=== PATIENT | female | born 1995 | race Hispanic/Latino ===

== ENCOUNTER 2017-01-29 07:44 | Emergency (ER) | payer OTHER ==
[~2017-01-29] VITALS: Ht 165.1 cm; Wt 115.7 kg
--- NOTE | 2017-01-29 07:54 | ED CARDIAC/CP/PALPITATIONS ---
History of Present Illness General Chief Complaint: Chest Pain Stated Complaint: CHEST PAIN,SOB Source: patient, family Exam Limitations: no limitations Vital Signs & Intake/Output Vital Signs & Intake/Output Vital Signs Date Time Temp Pulse Resp B/P B/P Pulse O2 O2 Flow FiO2 Mean Ox Delivery Rate 01/29 1005 97 01/29 0953 97.8 64 20 120/76 96 Room Air 01/29 0833 98 Room Air 01/29 0748 97.3 65 18 144/84 98 Room Air Allergies Coded Allergies: acetaminophen (From PERCOCET) (Severe, ITCHING 01/29/17) oxycodone (From PERCOCET) (Severe, ITCHING 01/29/17) shellfish derived (Severe, SWELLING 01/29/17) Reconcile Medications Albuterol Sulfate (Ventolin Hfa) 90 MCG HFA.AER.AD 2 PUF INH Q4-6 PRN PRN RESPIRATORY (Reported) Hyoscyamine Sulfate (Levsin-Sl) 0.125 MG TAB.SUBL 1-2 TAB SL Q4P PRN GI Prednisone 20 MG TABLET 1 TAB PO BID Asthma Triage Note: 21 Y/O FEMALE C/O CHEST PAIN, "AND DIAPHRAGM PAIN", ONSET THIS AM SHORTLY AFTER WAKING UP. HX ASTHMA AND STATES SHE USED HER INHALER WITH NO RELIEF. DENIES OTHER COMPLAINTS. TAKEN TO ROOM 3 FOR EKG/EVAL Triage Nurses Notes Reviewed? yes Onset: Just prior to arrival : No Patient currently breastfeeds: No HPI: Miss Soto is a 21-year-old female with past medical history of asthma and a cholecystectomy (March 2016 in [place]) who presented to the emergency department this morning complaining of chest pain. Patient states that her symptoms began this morning at approximately 5 AM. Pain woke her up from sleep. Pain is more prominent in the epigastric area. Pain is rated at a 6 out of 10 in severity and described as sharp. Pain also radiates bilaterally to her flank. She does not endorse any chest pressure or chest tightness. Patient does report this pain is similar to that that she experienced aproximately year ago when she required a cholecystectomy. She denies any fever, chills. She does endorse one episode of emesis this morning prior to coming in. Vomitus is described as nonbloody and nonbilious in nature. Patient did use her inhaler however has not gained any relief to congestion that she felt. Chung at bedside. (MELBA RODRIGUEZ MD) Duration: hour(s):, continues in ED Timing: recent history Quality/Severity: mild, aching, tightness Location: central Radiation: flanks Activities at Onset: none Prior Chest Pain/Card Workup: no prior chest pain, no prior cardiac workup Modifying Factors: Worsens With: breathing. Nitro Today/Relief: no nitro taken today Aspirin Today: no aspirin today Associated Symptoms: abdominal pain, shortness of breath LMP (ages 10-50): unknown (EVENS WHITE MD) Past History Travel History Traveled to [place] past 21 day No Medical History Any Pertinent Medical History? 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 No (MELBA RODRIGUEZ MD) Review of Systems Review of Systems Constitutional: Denies: chills, diaphoresis, fever, malaise, weakness. Respiratory: Denies: cough, hemoptysis, orthopnea, short of breath, sputum production. Cardiovascular: Reports: chest pain. Denies: edema, palpitations, peripheral edema, syncope. GI: Reports: abdominal pain, vomiting. Denies: bloating, constipation, diarrhea, distention, bowel incontinence, melena, nausea, bloody stool. Genitourinary: Denies: discharge, dysuria, frequency, hematuria, hesitation. Musculoskeletal: Denies: back pain, gout, joint pain, joint swelling. Skin: Denies: change in skin color, change in hair/nails, dryness. (MELBA RODRIGUEZ MD) Review of Systems EENTM: Reports: no symptoms. Neurological/Psychological: Reports: no symptoms. Hematologic/Endocrine: Reports: no symptoms. Immunologic/Allergic: Reports: no symptoms. All Other Systems: Reviewed and Negative (EVENS WHITE MD) Physical Exam Physical Exam General Appearance: well developed/nourished, no apparent distress, alert, comfortable, obese Head: normal appearance Eyes: Bilateral: PERRL. Ears, Nose, Throat: normal pharynx, normal ENT inspection Neck: normal inspection Respiratory: normal breath sounds, chest non-tender, no respiratory distress Cardiovascular: regular rate/rhythm Peripheral Pulses: 4+ radial (R), 4+ radial (L), 4+ dorsalis pedis (R), 4+ dorsalis pedis (L) Gastrointestinal: normal bowel sounds, soft, Epigastric Tenderness. Suprapubic Tenderenss. No Guarding, No rebound tenderness. Galvan - Back: normal inspection, normal range of motion, CVA tenderness (R) Extremities: normal inspection, no edema Neurologic/Psych: no motor/sensory deficits (MICHAEL BARR,MELBA) Physical Exam Reflexes: 2+: bicep (R), bicep (L). Skin: intact, normal color, warm/dry Lymphatic: no anterior cervical margy Core Measures ACS in differential dx? Yes ASA ordered for poss ACS? No-ACS ruled out Severe Sepsis Present: No Septic Shock Present: No (CHRISTOPHER BARR,EVENS) Progress Differential Diagnosis: AMI, musculoskeletal pain, pancreatitis Initial ED EKG: normal axis (MICHAEL BARR,MELBA) Plan of Care: Orders Procedure Date/time Status AEROSOL (GEN) 01/29 1001 Complete URINALYSIS 01/29 08 Complete LIPASE 01/29 0813 Complete COMPREHENSIVE METABOLIC PANEL 01/29 08 Complete CBC WITHOUT DIFFERENTIAL 01/29 813 Complete EKG 01/29 0745 Active Laboratory Tests 01/29/17 0830: Urine Color STRAW, Urine Clarity CLEAR, Urine pH 6.0, Ur Specific [place] 1.025, Urine Protein NEG, Urine Ketones NEG, Urine Nitrite NEG, Urine Bilirubin NEG, Urine Urobilinogen 0.2, Ur Leukocyte Esterase NEG, Ur Microscopic EXAM NOT REQUIRED, Urine Hemoglobin NEG, Urine Glucose NEG 01/29/17 0825: Anion Gap 12, Estimated GFR > 60, BUN/Creatinine Ratio 20.0, Glucose 105 H, Calcium 8.5, Total Bilirubin 0.7, AST 23, ALT 36, Alkaline Phosphatase 87, Total Protein 6.9, Albumin 4.1, Globulin 2.8, Albumin/Globulin Ratio 1.5, Lipase 73, CBC w Diff NO MAN DIFF REQ, RBC 5.24, MCV 78.4 L, MCH 25.4 L, RDW 13.8, MPV 7.0 L, Gran % 61.4, Lymphocytes % 29.5, Monocytes % 5.9, Eosinophils % 2.4, Basophils % 0.8, Absolute Granulocytes 3.9, Absolute Lymphocytes 1.9, Absolute Monocytes 0.4, Absolute Eosinophils 0.2, Absolute Basophils 0.1, PUBS MCHC 32.4 L Departure Departure Disposition: HOME OR SELF CARE Condition: Stable Referrals: PATIENT HAS NO PRIMARY CARE DR (PCP/Family) Additional Instructions: Please follow-up with the primary care physician in the next 7 days. We have provided you with a referral. For the next 24-48 hours please maintain a clear liquid diet. Advance her diet as tolerated. Departure Forms: Customer Survey General Discharge Information RELEASE- WORK for 1 days. (Including today's visit) Prescriptions: Current Visit Scripts Hyoscyamine Sulfate (Levsin-Sl) 1-2 TAB SL Q4P PRN GI #10 TAB Prednisone 1 TAB PO BID #10 TAB (MICHAEL BARR,MELBA) Departure Time of Disposition: 1053 Clinical Impression Primary Impression: Asthma with acute exacerbation in adult Secondary Impressions: Gastroenteritis Resident Co-Sign Statement Statement: ED Attending supervision documentation- x I saw and evaluated the patient. I have also reviewed all the pertinent lab results and diagnostic results. I agree with the findings and the plan of care as documented in the Resident's documentation. [] I have reviewed the ED Record and agree with the Resident's documentation. [] Additions or exceptions (if any) to the Resident's note and plan are summarized below: [] (EVENS WHITE MD) Critical Care Note Critical Care Note Critical Care Time: non-applicable (EVENS WHITE MD)
[2017-01-29 08:31] LABS: ABSOLUTE BASOPHIL COUNT 0.1 /CUMM (0.0-0.2); ABSOLUTE EOSINOPHIL COUNT 0.2 /CUMM (0.0-0.7); ABSOLUTE GRANULOCYTE CT 3.9 /CUMM (1.4-6.5); ABSOLUTE LYMPH COUNT 1.9 /CUMM (1.2-3.4); ABSOLUTE MONOCYTE COUNT 0.4 /CUMM (0.10-0.60); BASOPHIL % 0.8 % (0.0-2.0); EOSINOPHIL % 2.4 % (0-5); GRANULOCYTE % 61.4 % (42.2-75.2); MEAN CORPUSCULAR HGB 25.4 PG (27.0-31.0); MEAN CORPUSCULAR HGB CONC 32.4 G/DL (33.0-37.0); MEAN CORPUSCULAR VOLUME 78.4 FL (81.0-99.0); PLATELET COUNT 370 /CUMM (130-400); RBC DISTRIBUTION WIDTH 13.8 % (11.5-14.5); RED BLOOD CELL CT 5.24 /CUMM (4.20-5.40); WHITE BLOOD CELL COUNT 6.4 /CUMM (4.8-10.8)
[2017-01-29] MEDS ORDERED: VENTOLIN HFA18 GM INH (08:42)
[2017-01-29] MEDS ORDERED: LEVSIN-SL0.125 MG SL (09:05)
[2017-01-29 09:53] VITALS: BP 120/76
[2017-01-29] MEDS ORDERED: PREDNISONE20 M1 PO (10:34)
== END 2017-01-29 10:58 ==
LOC: ERH 07:44
PROVIDERS: Student in an Organized Health Care Education/Training Program
DX: J45.901 Unspecified asthma with (acute) exacerbation (principal); K52.9 Noninfective gastroenteritis and colitis, unspecified
CPT/HCPCS: 81003; 93005; 93010

== ENCOUNTER 2017-02-05 20:18 | Emergency (ER) | payer OTHER ==
[~2017-02-05] VITALS: Ht 165.1 cm; Wt 115.7 kg
[~2017-02-05 20:18] MED LIST: LEVSIN-SL0.125 MG SL; PREDNISONE20 M1 PO; VENTOLIN HFA18 GM INH
[2017-02-05 20:31] VITALS: BP 139/79
--- NOTE | 2017-02-05 21:55 | ED HEAD/FACIAL INJ COMPLAINT ---
History of Present Illness General Chief Complaint: Fall Stated Complaint: PT SLIP IN THE SHOWER AND HIT HER HEAD Source: patient Exam Limitations: no limitations Vital Signs & Intake/Output Vital Signs & Intake/Output Vital Signs Date Time Temp Pulse Resp B/P B/P Pulse O2 O2 Flow FiO2 Mean Ox Delivery Rate 02/05 2031 99.0 92 16 139/79 97 Room Air Allergies Coded Allergies: oxycodone (From PERCOCET) (Severe, ITCHING 01/29/17) shellfish derived (Severe, SWELLING 01/29/17) Reconcile Medications Albuterol Sulfate (Ventolin Hfa) 90 MCG HFA.AER.AD 2 PUF INH Q4-6 PRN PRN RESPIRATORY (Reported) Triage Note: PT TO TRIAGE S/P SLIP, FALL IN SHOWER,AND HIT BACK OF HEAD 1HR POT ANNEALER. C/O HEADACHE, BLURRY VISION, RINGING IN EARS. BUMP TO BACK OF HEAD NOTED. DENIES LOC, -LAC. ICE PACK PROVIDED. VSS. Triage Nurses Notes Reviewed? yes Onset: Abrupt Severity: mild, moderate Location: occipital Method of Injury: fall Loss of Consciousness: dazed Associated Symptoms: FEELS CONFUSED, NAUSEA : No Patient currently breastfeeds: No HPI: 20-year-old healthy female presents to the ER for chief complaint of headache, blurred vision and some confusion after slipping and falling in the shower a couple of hours ago. She did she lost her footing fell back and her head hit the soapdish and then she went to the ground. She does not think she passed appeared she has some confusion regarding the events. Complains of some blurred vision and some headache. She does feel a little bit dizzy. She is not on any aspirin or Plavix or any blood thinners. Past History Travel History Traveled to [place] past 21 day No Medical History Any Pertinent Medical History? 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 No Review of Systems Review of Systems Constitutional: Denies: chills, fever. EENTM: Reports: see HPI (TINNITUS), blurred vision. Respiratory: Reports: no symptoms. Cardiovascular: Denies: chest pain. GI: Reports: nausea. Denies: abdominal pain, vomiting. Genitourinary: Reports: no symptoms. Musculoskeletal: Denies: back pain. Skin: Reports: no symptoms. Neurological/Psychological: Reports: confusion, headache. Hematologic/Endocrine: Denies: bruising, bleeding, polyuria, polydipsia. Immunologic/Allergic: Denies: splenectomy. All Other Systems: Reviewed and Negative Physical Exam Physical Exam General Appearance: well developed/nourished, alert, awake, mild distress, obese Head: tenderness (OVER OCCIPUT, NO LACERATION) Eyes: Bilateral: PERRL, EOMI. Ears, Nose, Throat: normal pharynx, normal ENT inspection, hearing grossly normal Neck: normal inspection, supple Respiratory: normal breath sounds Cardiovascular: regular rate/rhythm Gastrointestinal: soft, non-tender Back: normal inspection Extremities: normal inspection, normal range of motion, no edema Psychiatric: awake, alert, oriented x 3 Cranial Nerves: normal hearing, normal speech, PERRL Coordination/Gait: normal gait Skin: intact, normal color, warm/dry Lymphatic: no anterior cervical margy Progress Differential Diagnosis: ICH, skull fracture, CONCUSSION Plan of Care: Orders Procedure Date/time Status URINE 02/05 2155 Complete Laboratory Tests 02/05/172209: Urine Test NEGATIVE Diagnostic Imaging: Viewed by Me: CT Scan. Discussed w/RAD: CT Scan. CXR Impression: PATIENT: TESSA GUAN PRESENT AGE: 21 PATIENT ACCOUNT NO: [id number] : 93 LOCATION: [facility] ORDERING PHYSICIAN: NORTH KIDD MD SERVICE DATE: 02/05/17 EXAM TYPE: CAT - CT HEAD WO IV CONTRAST EXAMINATION: CT HEAD WITHOUT CONTRAST CLINICAL INFORMATION: Pain after fall. Trauma to head. Blurry vision. COMPARISON: None. TECHNIQUE: Contiguous helical images of the brain were obtained without IV contrast. Multiplanar reconstructions were performed. DLP: 587 mGy-cm. FINDINGS: There are no pathologic extra-axial fluid collections. The lateral, third, fourth ventricles are nondilated and concordant with the appearance of the sulci. There is no evidence for acute intraparenchymal hemorrhage or infarct. There is neither mass nor mass effect. There is no shift of midline structures. The paranasal sinuses and mastoid air cells are clear. There are no osseous lesions. IMPRESSION: No evidence for acute intracranial injury. DICTATED BY: CHRISTOPHER MANLEY MD DATE/TIME DICTATED:02/05/172303 OUTCOMES ANALYST:DESTIN DATE/TIME TRANSCRIBED:2303 CONFIDENTIAL, DO NOT COPY WITHOUT APPROPRIATE AUTHORIZATION. < Electronically signed in Other Vendor System> SIGNED BY: CHRISTOPHER MANLEY MD 02/05/172309 Departure Departure Time of Disposition: 2329 Disposition: HOME OR SELF CARE Condition: Stable Clinical Impression Primary Impression: Head injury Referrals: PATIENT HAS NO PRIMARY CARE DR (PCP/Family) Additional Instructions: Take Motrin or Tylenol as it for pain. Follow-up with your doctor in the office. Return to the ER for any changing or worsening symptoms. Departure Forms: Customer Survey General Discharge Information
--- NOTE | 2017-02-05 23:10 | CT SCAN REPORT ---
EXAMINATION: CT HEAD WITHOUT CONTRAST CLINICAL INFORMATION: Pain after fall. Trauma to head. Blurry vision. COMPARISON: None. TECHNIQUE: Contiguous helical images of the brain were obtained without IV contrast. Multiplanar reconstructions were performed. DLP: 587 mGy-cm. FINDINGS: There are no pathologic extra-axial fluid collections. The lateral, third, fourth ventricles are nondilated and concordant with the appearance of the sulci. There is no evidence for acute intraparenchymal hemorrhage or infarct. There is neither mass nor mass effect. There is no shift of midline structures. The paranasal sinuses and mastoid air cells are clear. There are no osseous lesions. IMPRESSION: No evidence for acute intracranial injury.
== END 2017-02-05 23:39 ==
LOC: ERH 20:18
DX: S09.90XA Unspecified injury of head, initial encounter (principal); W18.2XXA Fall in (into) shower or empty bathtub, initial encounter; Y92.002 Bathroom of unspecified non-institutional (private) residence as the place of occurrence of the external cause; Y93.E1 Activity, personal bathing and showering
CPT/HCPCS: 81025

== ENCOUNTER 2017-03-11 14:20 | Emergency (ER) | payer OTHER ==
[~2017-03-11] VITALS: Ht 162.6 cm; Wt 113.4 kg
[2017-03-11 16:20] LABS: ABSOLUTE BASOPHIL COUNT 0.1 /CUMM (0.0-0.2); ABSOLUTE EOSINOPHIL COUNT 0.1 /CUMM (0.0-0.7); ABSOLUTE LYMPH COUNT 2.7 /CUMM (1.2-3.4); ABSOLUTE MONOCYTE COUNT 0.7 /CUMM (0.10-0.60); BASOPHIL % 0.6 % (0.0-2.0); EOSINOPHIL % 1.4 % (0-5); GRANULOCYTE % 62.2 % (42.2-75.2); HEMATOCRIT 40.1 % (37-47); MEAN CORPUSCULAR HGB 25.8 PG (27.0-31.0); MEAN CORPUSCULAR HGB CONC 32.7 G/DL (33.0-37.0); MEAN CORPUSCULAR VOLUME 78.7 FL (81.0-99.0); MEAN PLATELET VOLUME 7.2 FL (7.4-10.4); PLATELET COUNT 354 /CUMM (130-400); RBC DISTRIBUTION WIDTH 14.1 % (11.5-14.5); WHITE BLOOD CELL COUNT 9.6 /CUMM (4.8-10.8)
--- NOTE | 2017-03-11 16:43 | RADIOLOGY REPORT ---
EXAMINATION: XR CHEST CLINICAL INFORMATION: 21-year-old female with palpitations. COMPARISON: None TECHNIQUE: 2 views of the chest were obtained. The lateral right costophrenic sulcus is not included on the PA film. FINDINGS: No significant abnormality is noted involving the heart, lungs, mediastinum, bony thorax or soft tissues. The patient's gallbladder has been surgically removed. IMPRESSION: Unremarkable examination.
--- NOTE | 2017-03-11 17:32 | ED GENERAL ADULT ---
History of Present Illness General Chief Complaint: Palpitations Stated Complaint: PALPITATIONS, SOB Source: patient Exam Limitations: no limitations Vital Signs & Intake/Output Vital Signs & Intake/Output Vital Signs Date Time Temp Pulse Resp B/P B/P Pulse O2 O2 Flow FiO2 Mean Ox Delivery Rate 03/11 1754 98.2 85 18 134/86 97 Room Air Room Air 03/11 1612 98.5 80 16 128/75 99 Room Air 03/11 1428 98.1 87 18 142/85 99 Room Air Allergies Coded Allergies: oxycodone (From PERCOCET) (Severe, ITCHING 01/29/17) shellfish derived (Severe, SWELLING 01/29/17) Reconcile Medications No Known Home Medications Triage Note: 21 Y/O FEMALE C/O "THE FEELING LIKE I CANT CATCH MY BREATH" X 2-3 DAYS; WAS EVAL'D AT WALK IN CLINIC YESTERDAY AND WAS REFERRED TO [facility] FOR ? SKIPPED BEATS. PT STATES SHE CONTINUES TO FEEL SOB. DENIES PAIN. DENIES N/V/D. DENIES DIAPHORESIS. EKG COMPLETED AND SIGNED BY MD KIDD Triage Nurses Notes Reviewed? yes : No Patient currently breastfeeds: No HPI: 21-year-old female with a history of asthma presenting with palpitations and shortness of breath 1 month. Reports intermittent episodes that can last anywhere from a few minutes to all day, episodes have been more frequent over the past 2-3 days. Denies chest pain, nausea, vomiting, diaphoresis, pain to the arm/jaw/back. Patient was seen at an urgent care yesterday and told that she had an arrhythmia on her EKG. (MALINI MARTINEZ PA-C) Past History Travel History Traveled to [place] past 21 day No Medical History Any Pertinent Medical History? 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 No (MALINI MARTINEZ PA-C) Review of Systems Review of Systems Constitutional: Reports: no symptoms. Respiratory: Reports: short of breath. Denies: cough, hemoptysis, orthopnea, sputum production, stridor, wheezing. Cardiovascular: Reports: palpitations. Denies: chest pain, edema, orthopena, peripheral edema, syncope. GI: Reports: no symptoms. Genitourinary: Reports: no symptoms. Musculoskeletal: Reports: no symptoms. Skin: Reports: no symptoms. Neurological/Psychological: Reports: no symptoms. (MALINI MARTINEZ PA-C) Physical Exam Physical Exam General Appearance: well developed/nourished, no apparent distress, alert, awake , comfortable Head: atraumatic Respiratory: normal breath sounds, chest non-tender, lungs clear Cardiovascular: regular rate/rhythm, normal peripheral pulses Extremities: no edema Neurologic/Psych: awake, alert, oriented x 3, normal mood/affect Skin: intact, normal color, warm/dry Core Measures ACS in differential dx? No CVA/TIA Diagnosis: No Severe Sepsis Present: No Septic Shock Present: No (MICHELLE DAVIS,MALINI) Progress Differential Diagnoses I considered the following diagnoses in my evaluation of the patient: [Cardiac arrhythmia versus thyroid imbalance versus electrolyte abnormality versus anemia ] Plan of Care: Orders Procedure Date/time Status URINE 03/11 155 Complete TSH REFLEX 03/11 155 Complete TROPONIN LEVEL 03/11 155 Complete PHOSPHORUS 03/11 1555 Complete MAGNESIUM 03/11 1555 Complete CBC WITHOUT DIFFERENTIAL 03/11 155 Complete BASIC METABOLIC PANEL 03/11 1555 Complete EKG 03/11 1421 Active Laboratory Tests 03/11/17 1607: Anion Gap 9, Estimated GFR > 60, BUN/Creatinine Ratio 22.9, Glucose 77, Calcium 9.0, Phosphorus 3.6, Magnesium 2.1, Troponin I < 0.01, TSH &T3 &Free T4 Intrp 1.220, CBC w Diff NO MAN DIFF REQ, RBC 5.10, MCV 78.7 L, MCH 25.8 L, RDW 14.1, MPV 7.2 L, Gran % 62.2, Lymphocytes % 28.1, Monocytes % 7.7, Eosinophils % 1.4, Basophils % 0.6, Absolute Granulocytes 6.0, Absolute Lymphocytes 2.7, Absolute Monocytes 0.7 H, Absolute Eosinophils 0.1, Absolute Basophils 0.1, PUBS MCHC 32.7 L 03/11/17 1600: Urine Test NEGATIVE 03/11/17 1556: Troponin I Cancelled EKG showed normal sinus rhythm. Labs all within normal limits. Urine negative. Patient has remained asymptomatic while in the ED, and has remained in normal sinus rhythm on the compliance project manager. Patient given instructions to follow up with cardiology for Holter monitoring. (MALINI MARTINEZ PA-C) Initial ED EKG: normal axis, rhythm (sinus), rate (98), no ST T wave changes (MALINI MARTINEZ PA-C) Departure Departure Disposition: HOME OR SELF CARE Condition: Stable Clinical Impression Primary Impression: Palpitations Referrals: PALMIRA BARR,STEFAN Leach Additional Instructions: Follow-up with for reevaluation and to discuss the possibility of Holter monitoring to evaluate for any transient cardiac arrhythmias. Return to the ED for any new or worsening symptoms. 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 I have also reviewed all the pertinent lab results and diagnostic results. I agree with the findings and the plan of care as documented in the PA's/BROKERAGE PURCHASE AND SALE CLERK's documentation. [X] I have reviewed the ED Record and agree with the PA's/BROKERAGE PURCHASE AND SALE CLERK's documentation. [] Additions or exceptions (if any) to the PAs/BROKERAGE PURCHASE AND SALE CLERK's note and plan are summarized below: [] (MARTI BARR,NORTH) Critical Care Note Critical Care Note Critical Care Time: non-applicable (MALINI MARTINEZ PA-C)
[2017-03-11 17:54] VITALS: BP 134/86
== END 2017-03-11 17:55 ==
LOC: ERH 14:20
PROVIDERS: Physician Assistant
DX: R00.2 Palpitations (principal)
CPT/HCPCS: 81025; 93005; 93010

== ENCOUNTER 2018-03-06 16:13 | Emergency (ER) | payer OTHER ==
[~2018-03-06] VITALS: Ht 165.1 cm; Wt 127.0 kg
[2018-03-06 16:26] VITALS: BP 163/92
[2018-03-06 17:29] LABS: ABSOLUTE BASOPHIL COUNT 0.1 /CUMM (0.0-0.2); ABSOLUTE EOSINOPHIL COUNT 0.3 /CUMM (0.0-0.7); ABSOLUTE GRANULOCYTE CT 6.3 /CUMM (1.4-6.5); ABSOLUTE MONOCYTE COUNT 0.6 /CUMM (0.10-0.60); BASOPHIL % 0.5 % (0.0-2.0); EOSINOPHIL % 2.6 % (0-5); GRANULOCYTE % 61.3 % (42.2-75.2); HEMATOCRIT 39.5 % (37-47); MEAN CORPUSCULAR VOLUME 78.7 FL (81.0-99.0); PLATELET COUNT 368 /CUMM (130-400); RBC DISTRIBUTION WIDTH 13.2 % (11.5-14.5); RED BLOOD CELL CT 5.02 /CUMM (4.20-5.40); WHITE BLOOD CELL COUNT 10.2 /CUMM (4.8-10.8)
--- NOTE | 2018-03-06 19:15 | ED CARDIAC/CP/PALPITATIONS ---
History of Present Illness General Chief Complaint: Chest Pain Stated Complaint: CP/HIGH HEART RATE, 106 ON PULSE OX Source: patient Exam Limitations: no limitations Vital Signs & Intake/Output Vital Signs & Intake/Output Vital Signs Date Time Temp Pulse Resp B/P B/P Pulse O2 O2 Flow FiO2 Mean Ox Delivery Rate 03/06 1626 98.6 92 18 163/92 97 Room Air ED Intake and Output 03/07 0000 03/06 1200 Intake Total Output Total Balance Patient 280 lb Weight Weight Reported by Patient Measurement Method Allergies Coded Allergies: oxycodone (From PERCOCET) (Severe, ITCHING 01/29/17) shellfish derived (Severe, SWELLING 01/29/17) Reconcile Medications No Known Home Medications Triage Note: PT STATES YESTERDAY WHEN SHE GOT HOMNE FROM WORK HER HEAR WAS RACING. PT STATES SHE WOKE AND IT WAS THE SAME. PT MADE APPT. WITH PCP AND WAS SENT TO THE ED. PT STATES SHE DOES HAVE HAVE HX OF HEART PALPATIONS BUT IT DOESN'T FEEL LIKE THAT. PT STATES SHE IS HAVE CHEST PAIN BUT NO SOB AND SOME RADIATING PAIN TO LEFT ARM AT TIMES. Triage Nurses Notes Reviewed? yes Onset: Gradual Duration: hour(s): Timing: single episode today Quality/Severity: mild Location: central, epigastric Radiation: no radiation : No Patient currently breastfeeds: No HPI: 22-year-old woman history of palpitations in otherwise good health presents with 2 day history of intermittent palpitations shaking "all over my body, "as well as chest pain. She notes that the chest pain does not radiate up her neck or down her arms. It is not associated with diaphoresis or syncopal symptoms. Her discomfort appears to be reproducible when she presses upon her chest. She has no wheezing phlegm shortness of breath fevers chills. She is otherwise well and is no other concerns. Past History Travel History Traveled to [place] past 21 day No Medical History Any Pertinent Medical History? 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 No Review of Systems Review of Systems Constitutional: Reports: no symptoms. EENTM: Reports: no symptoms. Respiratory: Reports: no symptoms. Cardiovascular: Reports: no symptoms. GI: Reports: no symptoms. Genitourinary: Reports: no symptoms. Musculoskeletal: Reports: no symptoms. Skin: Reports: no symptoms. Neurological/Psychological: Reports: no symptoms. Hematologic/Endocrine: Reports: no symptoms. Immunologic/Allergic: Reports: no symptoms. All Other Systems: Reviewed and Negative Physical Exam Physical Exam General Appearance: well developed/nourished, no apparent distress, alert, awake , anxious, comfortable Head: normal appearance, evidence of injury Eyes: Bilateral: normal appearance. Ears, Nose, Throat: normal pharynx, normal ENT inspection Neck: normal inspection, supple, full range of motion Respiratory: normal breath sounds, no respiratory distress, quiet respiration, Parasternal chest wall tenderness to palpation Cardiovascular: regular rate/rhythm Gastrointestinal: normal bowel sounds, soft, non-tender, no organomegaly Back: normal inspection, normal range of motion Extremities: normal inspection, normal capillary refill Neurologic/Psych: no motor/sensory deficits, awake, alert, oriented x 3 Skin: intact, normal color, warm/dry Core Measures ACS in differential dx? No CVA/TIA Diagnosis No Sepsis Present: No Sepsis Focused Exam Completed? No Progress Differential Diagnosis: chest wall pain versus other. Plan of Care: Orders Procedure Date/time Status THYROID STIMULATING HORMONE 03/06 1628 Complete TROPONIN LEVEL 03/06 1628 Complete HUMAN BETA HCG SCREEN 03/06 1628 Complete FREE T4 03/06 1628 Complete D-DIMER 03/06 1628 Complete COMPREHENSIVE METABOLIC PANEL 03/06 1628 Complete CBC WITHOUT DIFFERENTIAL 03/06 1628 Complete EKG 03/06 1614 Active Laboratory Tests 03/06/18 1721: Anion Gap 14, Estimated GFR > 60, BUN/Creatinine Ratio 21.4, Glucose 94, Calcium 9.1, Total Bilirubin 0.7, AST 27, ALT 44, Alkaline Phosphatase 90, Troponin I < 0.01, Total Protein 7.3, Albumin 4.3, Globulin 3.0, Albumin/Globulin Ratio 1.4, TSH 1.040, Free T4 0.98, Total Beta HCG NEGATIVE, D-Dimer High Sensitivty < 200, CBC w Diff NO MAN DIFF REQ, RBC 5.02, MCV 78.7 L, MCH 26.0 L, MCHC 33.0, RDW 13.2, MPV 7.0 L, Gran % 61.3, Lymphocytes % 29.6, Monocytes % 6.0, Eosinophils % 2.6, Basophils % 0.5, Absolute Granulocytes 6.3, Absolute Lymphocytes 3.0, Absolute Monocytes 0.6, Absolute Eosinophils 0.3, Absolute Basophils 0.1 Initial ED EKG: sinus no acute changes. Departure Departure Disposition: HOME OR SELF CARE Condition: Stable Clinical Impression Primary Impression: Palpitations Referrals: Analilia BARR,Alfredo Block (PCP/Family) Departure Forms: Customer Survey General Discharge Information Prescriptions: Current Visit Scripts No Known Home Medications Comments Patient is well-appearing in the emergency department with benign evaluation. She'll follow-up with cardiology. Critical Care Note Critical Care Note Critical Care Time: non-applicable ED Attending Observation Initial Observation Note: I have seen and personally examined TESSA GUAN on 03/07/18 at 0406. I agree with the current emergency department documentation. The disposition (admission or discharge) is uncertain at this time, she needs a period of observation for the following reason(s): The ED Nurse caring for this patient has been personally informed as to what the patient is being observed for.
== END 2018-03-06 19:28 ==
LOC: ERH 16:13
PROVIDERS: Physician Assistant
DX: R00.2 Palpitations (principal); R07.9 Chest pain, unspecified
CPT/HCPCS: 93005; 93010